=== PATIENT | female | born 1980 | race Two or more races ===

== ENCOUNTER 2017-08-10 09:07 | Emergency (ER) | payer OTHER ==
[~2017-08-10] VITALS: Ht 170.2 cm; Wt 98.4 kg
[2017-08-10 09:20] VITALS: Ht 170.2 cm; Wt 98.4 kg
[2017-08-10 10:10] LABS: microscopic required? YES; urine erythrocyte 2+ (NEGATIVE)
[2017-08-10 10:21] VITALS: BP 116/81
== END 2017-08-10 10:21 | disposition home or self-care (01) ==
LOC: ED 09:07
PROVIDERS: Emergency Medicine
DX: N39.0 Urinary tract infection, site not specified (principal); Z88.1 Allergy status to other antibiotic agents

== ENCOUNTER 2017-08-26 03:53 | Inpatient (IN) | payer OTHER ==
[~2017-08-26] VITALS: Ht 170.2 cm; Wt 99.0 kg
[2017-08-26 04:02] VITALS: Ht 170.2 cm; Wt 99.0 kg
[2017-08-26 05:07] LABS: BASOPHIL % 0.3 % (0-2); PLATELET COUNT 247 x10^3mcL (130-400); RED CELL DISTRIBUTION WIDTH 14.5 % (11.5-14.5)
[2017-08-26 05:12] LABS: CALCIUM 8.8 mg/dL (8.5-10.1); CARBON DIOXIDE 24.2 mmol/L (21-32); CHLORIDE SERUM 107 mmol/L (98-107); CREATININE SERUM 1.1 mg/dL (0.6-1.0); GFR1 > 60 mL/min; GLUCOSE SERUM 104 mg/dL (74-106); POTASSIUM SERUM 4.1 mmol/L (3.5-5.1); SODIUM SERUM 143 mmol/L (136-145)
[2017-08-26 05:15] LABS: microscopic required? YES; urine erythrocyte 3+ (NEGATIVE)
[2017-08-26 05:16] LABS: ALBUMIN 3.4 g/dL (3.4-5.0); ALKALINE PHOSPHATASE 78 U/L (46-116); ALT/SGPT 25 U/L (14-59); AST/SGOT 25 U/L (15-37); LIPASE 103 IU/L (73-393); TOTAL PROTEIN, SERUM 7.2 g/dL (6.4-8.2)
[2017-08-26 08:00] VITALS: BP 99/66
[2017-08-26 09:55] VITALS: BP 99/66
[2017-08-26 10:48] LABS: FREE T4 0.79 ng/dL (0.76-1.46); FREE THYROXINE INDEX 2.1 ug/dL (1.4-4.5); T4(THYROXINE) 6.3 ug/dL (4.7-13.3)
[2017-08-26 11:01] LABS: T3 TOTAL 1.1 ng/mL
[2017-08-26 12:04] LABS: CHOLESTEROL/HDL RATIO 3.1; MAGNESIUM 1.7 mg/dL (1.8-2.4); PHOSPHOROUS 3.9 mg/dL (2.5-4.9)
[2017-08-26 13:35] VITALS: BP 99/42
[2017-08-26 13:53] VITALS: BP 122/69
[2017-08-26 17:28] VITALS: BP 109/49
[2017-08-26 17:32] LABS: AMPHETAMINE QUAL UR NONE DETECTED (NEG <=1000)
[2017-08-26 21:36] VITALS: BP 95/53
[2017-08-27 05:09] VITALS: BP 112/62
[2017-08-27 06:32] LABS: CALCIUM 8.6 mg/dL (8.5-10.1); CARBON DIOXIDE 27.5 mmol/L (21-32); CHLORIDE SERUM 111 mmol/L (98-107); GFR1 > 60 mL/min; GLUCOSE SERUM 126 mg/dL (74-106); POTASSIUM SERUM 4.1 mmol/L (3.5-5.1); SODIUM SERUM 145 mmol/L (136-145)
[2017-08-27 08:13] LABS: BASOPHIL % 0.3 % (0-2); PLATELET COUNT 222 x10^3mcL (130-400)
[2017-08-27 08:14] LABS: RED CELL DISTRIBUTION WIDTH 15.1 % (11.5-14.5)
[2017-08-27 08:46] VITALS: BP 108/60
[2017-08-27 12:03] VITALS: BP 128/78
[2017-08-27 15:45] VITALS: BP 111/61
[2017-08-27 21:16] VITALS: BP 110/5; BP 110/59
[2017-08-28 05:28] VITALS: BP 117/72
[2017-08-28 06:46] LABS: BASOPHIL % 0.2 % (0-2); PLATELET COUNT 222 x10^3mcL (130-400)
[2017-08-28 06:55] LABS: CALCIUM 8.5 mg/dL (8.5-10.1); CARBON DIOXIDE 27.2 mmol/L (21-32); CHLORIDE SERUM 107 mmol/L (98-107); GFR1 > 60 mL/min; GLUCOSE SERUM 111 mg/dL (74-106); POTASSIUM SERUM 3.8 mmol/L (3.5-5.1); SODIUM SERUM 141 mmol/L (136-145)
[2017-08-28 06:59] LABS: RED CELL DISTRIBUTION WIDTH 14.7 % (11.5-14.5)
[2017-08-28 08:55] VITALS: BP 109/56
[2017-08-28 15:48] VITALS: BP 103/59
[2017-08-28 20:17] VITALS: BP 108/57
[2017-08-29 05:46] VITALS: BP 104/58
[2017-08-29 06:30] LABS: BASOPHIL % 0.3 % (0-2); PLATELET COUNT 247 x10^3mcL (130-400); RED CELL DISTRIBUTION WIDTH 14.1 % (11.5-14.5)
[2017-08-29 06:50] LABS: CALCIUM 8.7 mg/dL (8.5-10.1); CARBON DIOXIDE 25.9 mmol/L (21-32); CHLORIDE SERUM 110 mmol/L (98-107); GFR1 > 60 mL/min; GLUCOSE SERUM 80 mg/dL (74-106); SODIUM SERUM 140 mmol/L (136-145)
[2017-08-29 08:48] VITALS: BP 110/68
[2017-08-29] MEDS ORDERED: BACTRIM DS1 TAB PO (11:01)
[2017-08-29] MEDS ORDERED: MOT800 PO (11:09)
[2017-08-29 13:21] VITALS: BP 130/77
== END 2017-08-29 14:15 | disposition home or self-care (01) | DRG 463 ==
LOC: ED 03:53 → DU 06:13 → MU 08-27 11:03
PROVIDERS: Emergency Medicine; Family Medicine
DX: N12 Tubulo-interstitial nephritis, not specified as acute or chronic (principal); N17.0 Acute kidney failure with tubular necrosis; D76.3 Other histiocytosis syndromes; E83.42 Hypomagnesemia; E44.1 Mild protein-calorie malnutrition; E78.5 Hyperlipidemia, unspecified; Z87.442 Personal history of urinary calculi; Z88.1 Allergy status to other antibiotic agents; Z68.33 Body mass index [BMI] 33.0-33.9, adult
CPT/HCPCS: 83880; 84439; J0696; J1885; J2270; J2405; J2543; J3490; J7030; Q0092

== ENCOUNTER 2017-09-06 20:56 | Emergency (ER) | payer OTHER ==
[~2017-09-06] VITALS: Ht 170.2 cm; Wt 103.4 kg
[~2017-09-06 20:56] MED LIST: BACTRIM DS1 TAB PO; MOT800 PO
[2017-09-06 21:24] VITALS: Ht 170.2 cm; Wt 103.4 kg
[2017-09-06 23:21] LABS: UA SPECIFIC GRAVITY 1.025 (1.005-1.035); microscopic required? YES; urine erythrocyte 3+ (NEGATIVE)
[2017-09-07 00:05] VITALS: BP 124/61
== END 2017-09-07 00:05 | disposition home or self-care (01) ==
LOC: ED 20:56
PROVIDERS: Emergency Medicine
DX: N10 Acute pyelonephritis (principal); B96.20 Unspecified Escherichia coli [E. coli] as the cause of diseases classified elsewhere; Z88.1 Allergy status to other antibiotic agents
CPT/HCPCS: J0696; J1885